=== PATIENT | female | born 1990 | race Caucasian/White ===

== ENCOUNTER 2016-06-08 20:40 | Emergency (ER) | payer OTHER ==
[~2016-06-08] VITALS: Ht 157.5 cm; Wt 55.0 kg
[~2016-06-08 20:40] MED LIST: AMOX500T PO; CHLO.12%30 SSP; Z.0.NO CURRENT MEDS
[2016-06-08 20:41] VITALS: BP 118/79; PULSE 64; RESP 18; TEMP 98.2; O2SAT 99
[2016-06-08] MEDS ORDERED: PENI500T PO (21:38)
[2016-06-08] MEDS ORDERED: TRIA0.5O TOPICAL (21:38)
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
[2016-06-08] MEDS ORDERED: PANTOPRAZOLE SOD 20 MG DELAYED RELEASE TAB PO ONE (22:00)
== END 2016-06-08 23:08 | disposition home or self-care (01) ==
LOC: NEPK 20:40
DX: L24.9 Irritant contact dermatitis, unspecified cause (principal)
CPT/HCPCS: 99283